=== PATIENT | female | born 1990 | race Two or more races ===

== ENCOUNTER 2024-12-16 13:53 | Outpatient (CLI) | payer OTHER | END 2024-12-16 13:54 | disposition home or self-care (01) | LOC: PRENATAL 13:53 | PROVIDERS: ATTEND Obstetrics & Gynecology Maternal & Fetal Medicine | DX: O44.00 Complete placenta previa NOS or without hemorrhage, unspecified trimester (principal); O09.519 Supervision of elderly primigravida, unspecified trimester; Z3A.21 21 weeks gestation of pregnancy ==

== ENCOUNTER 2025-01-23 18:09 | Outpatient (CLI) | payer OTHER ==
[2025-01-23] MEDS ORDERED: RINGERS SOLUTION,LACTATED 1,000 ML IV SCH (18:30)
[2025-01-23 18:31] VITALS: BP 100/68
[2025-01-23 18:54] LABS: URINE APPEARANCE Clear; URINE BILIRRUBIN Negative (NEGATIVE); URINE BLOOD Negative; URINE COLOR Yellow; URINE GLUCOSE Negative (NEGATIVE); URINE KETONE Negative (NEGATIVE); URINE LEUKOCYTE Negative; URINE NITRATE Negative; URINE PROTEIN Negative (NEGATIVE); URINE UROBILINOGEN 0.2 E.U./dl
[2025-01-23 18:57] LABS: URINE BACTERIA 1612.7 uL (0.0-1933); URINE EPITHELIAL CELLS 47.6 uL (0.0-38.8); URINE WBC 11.8 uL (0.0-23.2)
[2025-01-23 19:01] VITALS: BP 100/68
[2025-01-23 19:14] LABS: URINE CAST 0.14 uL (0.0-1.40); URINE RBC 1.6 uL (0.0-20.8)
[2025-01-23 20:11] LABS: BASO % 0.3 % (0.1-1.2); EOS # 0.05 (0.04-0.54); EOS % 0.4 % (0.7-7.0); LYMPH # 1.85 (1.18-3.74); LYMPH % 16.4 % (19.3-53.1); MEAN PLATELET VOLUME 10.00 fl (9.4-12.4); MONO # 0.51 (0.24-0.82); MONO % 4.5 % (4.7-12.5); NEUT # 8.76 (1.56-6.13); NEUT % 78.0 % (34.0-71.1); RED CELL DISTRIBUTION WIDTH 12.4 % (11.6-14.4)
[2025-01-23 23:08] VITALS: BP 99/61
[2025-01-24 04:07] VITALS: BP 96/62
[2025-01-24 06:08] VITALS: BP 98/62; O2SAT 98
[2025-01-24 12:08] VITALS: BP 94/54
[2025-01-24 14:05] VITALS: BP 94/54
== END 2025-01-24 14:05 | disposition home or self-care (01) ==
LOC: OBS/DEL 18:09
PROVIDERS: Obstetrics & Gynecology; ATTEND Student in an Organized Health Care Education/Training Program
DX: O26.892 Other specified pregnancy related conditions, second trimester (principal); Z3A.27 27 weeks gestation of pregnancy

== ENCOUNTER → 2025-02-28 10:19 | Outpatient (CLI) | payer OTHER | END | disposition home or self-care (01) | LOC: NUCLEAR 10:00 | PROVIDERS: ATTEND Student in an Organized Health Care Education/Training Program | DX: I82.403 Acute embolism and thrombosis of unspecified deep veins of lower extremity, bilateral (principal) ==

== ENCOUNTER → 2025-03-08 08:29 | Outpatient (CLI) | payer OTHER | END | disposition home or self-care (01) | LOC: PRENATAL 08:29 | PROVIDERS: ATTEND Obstetrics & Gynecology Maternal & Fetal Medicine | DX: O26.843 Uterine size-date discrepancy, third trimester (principal); O36.8130 Decreased fetal movements, third trimester, not applicable or unspecified; O09.513 Supervision of elderly primigravida, third trimester; O36.63X0 Maternal care for excessive fetal growth, third trimester, not applicable or unspecified; Z3A.34 34 weeks gestation of pregnancy ==